=== PATIENT | female | born 1995 | race Caucasian/White ===

== ENCOUNTER → 2021-07-04 | Outpatient (CLI) | payer BC | LOC: COL.RAD 10:06 | DX: R10.11 Right upper quadrant pain (principal) ==

== ENCOUNTER 2021-08-23 05:48 | Day surgery (SDC) | payer BC ==
[~2021-08-23] VITALS: Ht 175.3 cm; Wt 85.0 kg
[2021-08-23] MEDS ORDERED: BLISOVI 24 FE1 EACH PO (06:08)
[2021-08-23 06:20] VITALS: BP 126/83; PULSE 100; TEMP 98.1
[2021-08-23 07:40] VITALS: BP 103/73; PULSE 81; TEMP 97.8
--- NOTE | 2021-08-23 07:40 | NUR ---
pt to [facility] via cart from endo lab. pt walked to chair, call light in reach, takes snack, no c/o
[2021-08-23 07:55] VITALS: BP 100/59; PULSE 77
[2021-08-23 08:10] VITALS: BP 110/70; PULSE 78
--- NOTE | 2021-08-23 08:10 | NUR ---
into talk with pt, has no c/o
[2021-08-23 08:20] VITALS: BP 101/77; PULSE 70
--- NOTE | 2021-08-23 08:20 | NUR ---
reviewed discharge inst. with pt on moderate sedation precautions, follow up with offic, pt states will call office on thursday, needing short term disability papers signed. iv d'cd intact. pt is up and dressed, discharged via w/c to car
== END 2021-08-23 08:30 | disposition home or self-care (01) ==
LOC: SDCO 05:48
DX: R10.84 Generalized abdominal pain (principal); K92.1 Melena; K62.1 Rectal polyp; R11.2 Nausea with vomiting, unspecified; K59.09 Other constipation; K64.0 First degree hemorrhoids; K64.1 Second degree hemorrhoids; K62.89 Other specified diseases of anus and rectum; Z87.891 Personal history of nicotine dependence
CPT/HCPCS: J2704; J3010; J7030

== ENCOUNTER → 2021-09-09 | Outpatient (CLI) | payer BC ==
[~2021-09-09] MED LIST: BLISOVI 24 FE1 EACH PO
== END ==
LOC: COL.RAD 09:33
DX: R11.2 Nausea with vomiting, unspecified (principal)
CPT/HCPCS: A9537; J2805